=== PATIENT | female | born 1995 | race Caucasian/White ===

== ENCOUNTER 2020-09-05 08:45 | Outpatient (RCR) | payer OTHER, SELFPAY ==
--- NOTE | 2020-09-04 08:14 | PC.NURSE ---
Pt was assessed on 09/03/20 with a scheduled start oh PHP on 09/04/20. Pt called TW to inform that her chief development officer opened a window of time for her to obtain her methadone at 930 on 09/04/20, therefor making pt unable to attend the 930 group. TW spoke with pt who stated this was a one time occurrance and that she has informed PO that she is attending PHP and will need her window to be opened up at 8am to ensure that she is back for the 9am group. Pt's start delayed until 09/05/20.
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
--- NOTE | 2020-09-05 13:29 | PC.NURSE ---
LM for pt's therapist, Simi at [facility] ([phone]), regarding start of treatment today.
--- NOTE | 2020-09-05 14:13 | PC.ADMIT ---
Patient is a 25 year old female who self referred to [facility] d/t increased depression and PTSD sxs and utilizing substances to cope. Patient is currently on house arrest and has an ankle bracelet. She is charged with possession of substances and spent 5 days in [facility] as a result. Patient stated she is in the program for court and for herself to work on her recovery an mental health. Patient is alert and oriented x4. Calm and cooperative. Denied Si. Gave verbal permission to email her a copy of her safety plan and also email her a copy of online substance resource/groups. Encouraged patient to attend online substance groups in addition to PHP for more support. Patient stated she currently is attending weekly substance groups at [facility]. Patient appears motivated for treatment. Reports a year and a half sobriety until relapse 8 months ago. Reports using crack cocaine and heroin once a week last use last . Completed via telephone d/t pandemic/program platform.
[2020-09-08 09:01] VITALS: BMI 29.4
--- NOTE | 2020-09-08 14:00 | PC.NURSE ---
Pt called out sick. She LM stating she has a fever of 102 degrees and has been vomiting, and that she will likely be going to the ED soon. -6am.
== END 2020-09-11 09:15 | disposition home or self-care (01) ==
LOC: HO.PHPA 08:45
PROVIDERS: Visit Provider Psychiatry & Neurology Psychiatry
DX: F33.9 Major depressive disorder, recurrent, unspecified (principal); F43.10 Post-traumatic stress disorder, unspecified; F11.20 Opioid dependence, uncomplicated
CPT/HCPCS: 90792; 90853

== ENCOUNTER → 2021-07-09 09:26 | Outpatient (REF) | payer OTHER, SELFPAY ==
--- NOTE | 2021-07-09 09:35 | ECG_ITS ---
Test Reason : QT PROLONG MED Blood Pressure : / mmHG Vent. Rate : 076 BPM Atrial Rate : 076 BPM P-R Int : 132 ms QRS Dur : 088 ms QT Int : 422 ms P-R-T Axes : 065 068 058 degrees QTc Int : 474 ms Normal sinus rhythm Normal ECG No previous ECGs available Referred By: Lilo Lieberman Electronically Signed By:KRISHNA CABRERA
== END ==
LOC: HO.CARD 09:26
PROVIDERS: PCP Internal Medicine; Visit Provider Family Medicine
DX: R94.31 Abnormal electrocardiogram [ECG] [EKG] (principal)
CPT/HCPCS: 93005

== ENCOUNTER 2021-10-10 15:38 | Emergency (ER) | payer OTHER, SELFPAY ==
--- NOTE | ~2021-10-10 | XR_ITS ---
EXAMINATION: XR ANKLE, LEFT CLINICAL INFORMATION: Pain, unable to bear weight COMPARISON: None TECHNIQUE: AP, lateral, and mortise views of the left ankle. FINDINGS: The bones and soft tissues are normal. No fracture. Alignment is anatomic. Joint spaces are maintained. No joint effusion. XR/XR ankle LT min 3V IMPRESSION: Normal left ankle.
[2021-10-10 15:47] VITALS: BP 128/86; PULSE 100; RESP 18; TEMP 37.3; O2SAT 96; BMI 29.2
--- NOTE | 2021-10-10 17:08 | ED_ITS ---
HPI - Extremity Injury (Lower) General Chief Complaint: Extremity Injury, Lower Stated Complaint: Left foot injury Time Seen by Provider: 10/10/21 15:57 History of Present Illness HPI Narrative: Patient complains of left ankle pain and swelling after a trip and fall this morning which she twisted her ankle, no other injury no headache no neck pain no back pain no numbness weakness or tingling Related Data Home Medications Medication Instructions Recorded Confirmed methadone 10 mg/5 mL oral solution 120 mg PO DAILY 09/05/20 09/05/20 Previous Rx's Medication Instructions Recorded citalopram 10 mg tablet 10 mg PO DAILY #7 tab 09/05/20 ibuprofen 600 mg tablet 600 mg PO Q6H PRN #20 tab 10/10/21 Allergies Allergy/AdvReac Type Severity Reaction Status Date / Time tramadol [TRAMADOL] Allergy Severe HIVES Unverified 08/07/20 18:33 Review of Systems Review of Systems: Positive left ankle pain and swelling Yes all other systems are reviewed and are negative [facility] Past Medical History Medical History (Updated 10/10/21 @ 17:15 by PATRICIA Harrell) No known health problems Surgical History (Updated 09/05/20 @ 14:12 by Hali Bolden RN) History of adenoidectomy Social History Social History Household Members: Significant Other Cigarettes Per Day: 10 Years Smoked: Since age 12 Advance Directives: No Advance Directives Information Provided: Yes Patient : No Physical Exam Vital Signs: Vital Signs: Last Vital Signs Temp 99.2 F 10/10/21 15:47 Pulse 100 10/10/21 15:47 Resp 18 10/10/21 15:47 BP 128/86 10/10/21 15:47 Pulse Ox 96 10/10/21 15:47 Body Mass Index 29.2 Discharge Plan Discharge Clinical Impression: Ankle sprain and strain Patient Disposition: Home, Self-Care Additional Instructions: X-ray did not show any broken bone Follow with orthopedist as needed and activity as tolerated Prescriptions: New ibuprofen 600 mg tablet 600 mg PO Q6H PRN (Reason: pain) Qty: 20 RF: 0 No Action citalopram 10 mg tablet 10 mg PO DAILY Qty: 7 RF: 0 methadone 10 mg/5 mL Solution 120 mg PO DAILY RF: 0 Referrals: Jose Cruz Woodard PA-C [Physician Respite Care Provider] - 2 days (Left ankle sprain)
== END 2021-10-10 17:43 | disposition home or self-care (01) ==
PROVIDERS: Emergency Provider Emergency Medicine Emergency Medical Services; PCP Internal Medicine
DX: S93.402A Sprain of unspecified ligament of left ankle, initial encounter (principal); S96.912A Strain of unspecified muscle and tendon at ankle and foot level, left foot, initial encounter; X50.1XXA Overexertion from prolonged static or awkward postures, initial encounter; Y93.9 Activity, unspecified; Y92.9 Unspecified place or not applicable; Y99.9 Unspecified external cause status
CPT/HCPCS: 73610; 99283

== ENCOUNTER 2021-10-12 13:47 | Emergency (ER) | payer OTHER, SELFPAY | END 2021-10-12 15:59 | disposition left against medical advice (07) | LOC: HO.ED 15:57 | PROVIDERS: Emergency Provider Emergency Medicine | DX: S99.912A Unspecified injury of left ankle, initial encounter (principal); X58.XXXA Exposure to other specified factors, initial encounter; Y93.9 Activity, unspecified; Y92.9 Unspecified place or not applicable; Y99.0 Civilian activity done for income or pay ==

== ENCOUNTER 2021-11-25 14:26 | Emergency (ER) | payer OTHER, SELFPAY | END 2021-11-25 18:14 | disposition left against medical advice (07) | PROVIDERS: Emergency Provider Emergency Medicine | DX: R68.89 Other general symptoms and signs (principal) ==